=== PATIENT | female | born 1975 | race Caucasian/White ===

== ENCOUNTER 2019-03-03 10:53 | Observation (INO) | payer OTHER ==
[~2019-03-03 10:53] MED LIST: DEXAMETHASONE 4 MG/ML VIAL ONE; GLYCOPYRROLATE 0.2 MG/1 ML VIAL ONE; KETOROLAC 30 MG/1 ML SDV ONE; LIDOCAINE 2% 100 MG/5 ML SYR ONE; NEOSTIGMINE METHYLSULFATE 5 MG/5 ML SYR ONE; ONDANSETRON 4 MG/2 ML VIAL ONE; PHENYLEPHRINE HCL 100 MCG/ML SYR ONE; PROPOFOL 200 MG/20 ML VIAL ONE; ROCURONIUM 50 MG/5 ML VIAL ONE; SUGAMMADEX SODIUM 200 MG/2 ML VIAL IVP ONE; fentaNYL 100 MCG/2 ML INJ ONE
[2019-03-03] MEDS ORDERED: ceFAZolin 2 GM/DEXTROSE 100 ML IV ONE (11:02)
[2019-03-03] MEDS ORDERED: GABAPENTIN 300 MG CAP PO ONE (11:02)
[2019-03-03] MEDS ORDERED: ACETAMINOPHEN 500 MG TAB PO ONE (11:02)
[2019-03-03] MEDS ORDERED: LR 1,000 ML IV ONE (11:02)
[2019-03-03] MEDS ORDERED: PHENAZOPYRIDINE HCL 200 MG TAB PO ONE (11:02)
[2019-03-03] MEDS ORDERED: BUPIVACAINE/EPI 0.25% 30 ML SDV ONE (14:18)
--- NOTE | 2019-03-03 14:27 | PDANEPAE ---
ANE History of Present Illness endometriosis, here for robotic ablation of endometriosis lesions ANE Past Medical History - Cardiovascular History Hx Hypertension: No Hx Arrhythmias: No Hx Chest Pain: No Hx Coronary Artery / Peripheral Vascular Disease: No Hx CHF / Valvular Disease: No Hx Palpitations: No - Pulmonary History Hx COPD: No Hx Asthma/Reactive Airway Disease: Yes Hx Recent Upper Respiratory Infection: No Hx Oxygen in Use at Home: No Hx Sleep Apnea: No Sleep Apnea Screening Result - Last Documented: Negative Pulmonary History Comment: exercise induced asthma - Neurologic History Hx Cerebrovascular Accident: No Hx Seizures: No Hx Dementia: No - Endocrine History Hx Diabetes: No - Renal History Hx Renal Disorders: No - Liver History Hx Hepatic Disorders: No - Neurological & Psychiatric Hx Hx Neurological and Psychiatric Disorders: Yes Neurological / Psychiatric History Comment: anxiety/depression - Cancer History Hx Cancer: No - Congenital Disorder History Hx Congenital Disorders: No - GI History Hx Gastrointestinal Disorders: Yes Gastrointestinal History Comment: acid reflux - Other Health History Other Health History: chronic sinus infections. endometriosis - Chronic Pain History Chronic Pain: Yes (facial,left hip,) - Surgical History Prior Surgeries: cvolonoscopy/egd. hysterectomy,gallbladder removal ANE Review of Systems Review of Systems: - Exercise capacity METS (RN): 5 METS ANE Patient History - Allergies Allergies/Adverse Reactions: erythromycin base Allergy (Verified 02/22/19 11:16) Other-Enter Comments dermabond Allergy (Uncoded 02/22/19 11:16) Rash - Home Medications Home Medications: Accutane 02/22/19 [Last Taken 2 Weeks Ago ~02/17/19] Ibuprofen 02/22/19 [Last Taken 02/23/19] Lipitor 02/22/19 [Last Taken 3 Weeks Ago ~02/10/19] Prilosec 02/22/19 [Last Taken 03/03/19] Robaxin 500 mg (*) 02/22/19 [Last Taken 2 Weeks Ago ~02/17/19] busPIRone 02/22/19 [Last Taken 03/03/19] - NPO status NPO Since - Liquids (Date): 03/03/19 NPO Since - Liquids (Time): 10:06 NPO Since - Solids (Date): 03/02/19 NPO Since - Solids (Time): 18:00 - Smoking Hx Smoking Status: Never smoked - Family Anes Hx Family Hx Anesthesia Complications: none ANE Labs/Vital Signs - Vital Signs Blood Pressure: 126/81 Heart Rate: 62 Respiratory Rate: 20 O2 Sat (%): 98 Height: 170.18 cm Weight: 87.543 kg ANE Physical Exam - Airway Neck exam: FROM Mallampati Score: Class 1 Mouth exam: normal dental/mouth exam - Pulmonary Pulmonary: no respiratory distress, no rales or rhonchi - Cardiovascular Cardiovascular: regular rate and rhythym, no murmur, rub, or gallop - ASA Status ASA Status: III ANE Anesthesia Plan Anesthesia Plan: general endotracheal anesthesia Total IV Anesthesia: Yes
[2019-03-03] MEDS ORDERED: MIDAZOLAM 2 MG/2 ML VIAL IVP ONE (14:28)
[2019-03-03] MEDS ORDERED: MIDAZOLAM 2 MG/2 ML VIAL ONE (14:28)
[2019-03-03] MEDS ORDERED: SCOPOLAMINE HYDROBROMIDE 1 MG/3 DAYS PATCH TD ONE (14:28)
[2019-03-03] MEDS ORDERED: SCOPOLAMINE HYDROBROMIDE 1 MG/3 DAYS PATCH TD SCH (14:30)
[2019-03-03] MEDS ORDERED: PROPOFOL/EMULSION 500 MG/50 ML BOTTLE IV ONE ×3 (15:01→15:34)
[2019-03-03] MEDS ORDERED: HYDROmorphONE/DILAUDID 2 MG/ML INJ ONE (15:25)
--- NOTE | 2019-03-03 16:45 | POSTOPPROG ---
Post Op Note Date of Operation: 03/03/19 Surgeon: Yair Worthy Central Services Tech: Trinidad Savage Anesthesia: GET(General Endotracheal) Pre-op Diagnosis: Endometriosis, pelvic pain, stress incontinence Post-op Diagnosis: Same Procedure: Robotic excision of endo, bilat ureterolysis, cystotomy repair Findings: Endo Inf/Abcess present in the surg proc area at time of surgery?: No EBL: Minimal Complications: Cystotomy
[2019-03-03] MEDS ORDERED: NALOXONE HCL 0.4 MG/ML INJ IVP PRN (17:09)
[2019-03-03] MEDS ORDERED: PHENYLEPHRINE HCL 100 MCG/ML SYR IVP PRN (17:09)
[2019-03-03] MEDS ORDERED: DIAZEPAM 5 MG/ML 1 ML SYR IVP PRN (17:09)
[2019-03-03] MEDS ORDERED: MEPERIDINE 25 MG/0.5 ML AMP IVP PRN (17:09)
[2019-03-03] MEDS ORDERED: HYDROmorphONE/DILAUDID 1 MG/ML INJ IVP PRN ×2 (17:09→17:45)
[2019-03-03] MEDS ORDERED: fentaNYL 100 MCG/2 ML INJ IVP PRN (17:09)
[2019-03-03] MEDS ORDERED: LABETALOL HCL 5 MG/ML 20 ML MDV IVP PRN (17:09)
[2019-03-03] MEDS ORDERED: oxyCODONE IR 5 MG TAB PO PRN (17:09)
[2019-03-03] MEDS ORDERED: LR 500 ML IV PRN (17:09)
[2019-03-03] MEDS ORDERED: PROMETHAZINE HCL 25 MG/ML INJ IVP PRN (17:09)
--- NOTE | 2019-03-03 17:11 | POSTANESTH ---
Post Anesthetic Evaluation Cardiovascular Status: Normal, Stable Respiratory Status: Normal, Stable Level of Consciousness/Mental Status: Can Participate in Eval, Mildly Sleepy, Arousable Pain Control: Adequate, Prn Tx Ordered Nausea/Vomiting Control: Adequate, Prn Tx Ordered Complications Possibly Related to Anesthesia: None Noted
[2019-03-03] MEDS ORDERED: ONDANSETRON 4 MG/2 ML VIAL IVP PRN (17:45)
[2019-03-03] MEDS ORDERED: ONDANSETRON DISINTEGRATING 4 MG TAB PO PRN (17:45)
[2019-03-03] MEDS ORDERED: LR 1,000 ML IV SCH (18:00)
[2019-03-03] MEDS: SIMETHICONE 80 MG TAB CHEW PO SCH (20:02)
[2019-03-03] MEDS: DOCUSATE SODIUM 100 MG CAP PO SCH (20:02)
[2019-03-03] MEDS: KETOROLAC 30 MG/1 ML SDV IVP SCH (20:52)
[2019-03-03] MEDS: GABAPENTIN 100 MG CAP PO SCH (22:41)
[2019-03-04] MEDS: SIMETHICONE 80 MG TAB CHEW PO SCH ×2 (00:05→11:02)
[2019-03-04] MEDS: KETOROLAC 30 MG/1 ML SDV IVP SCH ×3 (00:40→11:38)
[2019-03-04] MEDS: OXYCODONE/APAP 5/325 TAB PO PRN ×3 (01:02→11:37)
--- NOTE | 2019-03-04 04:07 | GOP ---
[f rep st] OPERATIVE REPORT DATE OF OPERATION: 03/03/2019 SURGEON: Yair Worthy MD JUNIOR TECHNICAL WRITER: Trinidad Savage CFA. ANESTHESIA: General. PREOPERATIVE DIAGNOSIS: 1. Sacroiliac pelvic pain. 2. Endometriosis. 3. Dyspareunia. 4. Vaginal vault prolapse with cystocele. 5. Stress urinary incontinence. POSTOPERATIVE DIAGNOSIS: 1. Sacroiliac pelvic pain. 2. Endometriosis. 3. Dyspareunia. 4. Vaginal vault prolapse with cystocele. 5. Stress urinary incontinence. PROCEDURE PERFORMED: 1. Robotic excision of endometriosis and posterior cul-de-sac bilateral pelvic side husain. 2. Bilateral ureterolysis. 3. Bilateral salpingo-oophorectomy. 4. Excision of rectal lesion. 5. Excision of sigmoid lesion. 6. Uterosacral ligament colpopexy. 7. Cystoscopy. 8. Cystotomy repair. FINDINGS: SPECIMENS: 1. Pelvic peritoneum with endometriosis. 1. Bilateral tubes and ovaries. DESCRIPTION OF PROCEDURE: The patient was taken to the operating room. She was identified. General anesthesia was administered and found to be adequate. She was placed in the lithotomy position and prepared and draped in the normal sterile fashion. A Sheets catheter was placed in her bladder. An 8 mm infraumbilical incision was made with the scalpel. The Veress needed with the CO2 gas flowing was advanced into the peritoneal cavity. The abdomen was then insufflated with carbon dioxide gas. The 8 mm trocar followed by the laparoscope were then inserted. The upper abdomen was unremarkable. There was no evidence of endometriosis on either diaphragm or upper abdominal bowel. Within the pelvis, there was endometriosis in the posterior cul-de-sac along both pelvic side husain, along both adnexa as well as the rectum and sigmoid colon. There were loops of small bowel adherent throughout the pelvis. Approximately 20 minutes of enterolysis was required to safely remove all of the bowel from the pelvis so the endometriosis could be excised. The lesions on the sigmoid colon and rectum were excised and sent to Pathology. They extended into the muscularis. The entire posterior cul-de-sac peritoneum from the distal rectum up to the vaginal cuff and laterally to the uterosacral ligament were then completely excised. She required a bilateral ureterolysis to safely remove the peritoneum and endometriosis overlying both ureters. The peritoneum of the pelvic rims was incised. The ureters were gently dissected free and lateralized off the overlying peritoneum and endometriosis from the pelvic brim down to the bladder. Once this was accomplished, the entire pelvic sidewall peritoneum bilaterally was completely excised. The bladder was very thin from her previous surgery. Several lesions on the bladder were excised. During excision of 1, an approximately 2 mm cystotomy occurred. This was oversewn with a figure of 8 suture of 3-0 Vicryl. The bladder was then back filled with saline and the integrity was intact. Both tubes and ovaries were removed. The adnexa were from the pelvic sidewalls. The infundibulopelvic vessels were isolated, coagulated and divided. An approximately 1.5 cm incision was made at the vaginal cuff. All specimens were removed through the vaginal cuffs. This was closed with a running suture of 0 V -Loc 180. A bilateral uterosacral ligament colpopexy was then performed by attaching each angle of the vaginal cuff to the ipsilateral uterosacral ligament near the coccygeal sacrospinous ligament complexes. The pelvis was then irrigated with sterile saline and hemostasis was present. The robot was then undocked. Cystoscopy was performed. Good bladder integrity was seen. Both ureters had vigorous jets of urine. There was no other pathology or abnormality seen. Given the prior cystotomy, a decision was made to postpone the mid urethral sling procedure until the bladder had healed. Anesthesia was then reversed. The patient was taken to the PACU awake and in stable condition. COMPLICATIONS: Cystotomy. DISPOSITION: Patient stable to PACU. /[id number]/MODL MTDD
[2019-03-04 06:29] LABS: PLATELET COUNT 203 10^3/uL (150-400)
[2019-03-04 08:30] VITALS: BP 103/65
--- NOTE | 2019-03-04 10:38 | GDS ---
[f rep st] DISCHARGE SUMMARY ADMISSION DIAGNOSES: 1. Endometriosis. 2. Pelvic pain. 3. Stress urinary incontinence. DISCHARGE DIAGNOSES: 1. Endometriosis. 2. Pelvic pain. 3. Stress urinary incontinence. PROCEDURES: 1. Robotic excision of endometriosis in the posterior cul-de-sac, bilateral pelvic side husain. 2. Bilateral ureterolysis. 3. Bilateral salpingo-oophorectomy. 4. Excision of rectal and sigmoid lesions. 5. Uterosacral ligament colpopexy. 6. Cystotomy repair. 7. Cystoscopy. HISTORY: The patient suffers from recurrent endometriosis and stress urinary incontinence. She was taken to the operating room on 03/03/2019, where she underwent the above-mentioned procedures. She t olerated them well. Her bladder wall was extremely thin. Excising a lesion of endometriosis on the bladder dome required a cystotomy. This was repaired with a [id number] suture of 3-0 Vicryl. Her postoperative course was uneventful. The morning after surgery, she was ambulating and toleratin g a general diet. She is discharged home on postoperative day #1 in good condition. Medications inc luded Percocet and ibuprofen for pain and estradiol 1 mg for hormone replacement. She was to keep he r Sheets catheter in place for 1 week. She was going to remove it at home since she lives [address]. I instructed her on how to remove it. She is to call me later in the afternoon after removing it to let me know how she is doing. She will follow up in the office 2 weeks after discharge. /[id number]/MODL
[2019-03-04] MEDS: DOCUSATE SODIUM 100 MG CAP PO SCH (10:55)
[2019-03-04] MEDS: GABAPENTIN 100 MG CAP PO SCH (10:56)
[2019-03-06] MEDS ORDERED: PATCH REMOVAL 1 EA PATCH TD SCH (14:28)
== END 2019-03-04 12:00 | disposition home or self-care (01) ==
LOC: FSGY 10:53 → F3E 17:45 → FOB 18:15
PROVIDERS: ADMIT Obstetrics & Gynecology; ATTEND Obstetrics & Gynecology
DX: N80.3 Endometriosis of pelvic peritoneum (principal); N99.71 Accidental puncture and laceration of a genitourinary system organ or structure during a genitourinary system procedure; N94.19 Other specified dyspareunia; N99.3 Prolapse of vaginal vault after hysterectomy; R10.2 Pelvic and perineal pain; N39.3 Stress incontinence (female) (male)
CPT/HCPCS: 51860; 57425; 58661; 58662; G0378; J0690; J1100; J1170; J1885; J2001; J2250; J2370; J2405; J2704; J2710; J3010